=== PATIENT | female | born 1955 | race Caucasian/White ===

== ENCOUNTER → 2017-04-09 | Outpatient (REF) | payer OTHER ==
[2017-04-12 00:07] LABS: Lyme Disease IgG/IgM Antibodie <0.91 ISR (0.00-0.90); Lyme Disease IgM Ab Quantitati <0.80 index (0.00-0.79)
== END ==
LOC: M LAB REF 16:38
PROVIDERS: ATTEND Nurse Practitioner Family
DX: M79.1 Myalgia (principal)

== ENCOUNTER → 2017-04-16 | Outpatient (REF) | payer OTHER | LOC: M LAB REF 12:55 | PROVIDERS: ATTEND Nurse Practitioner Family | DX: M79.1 Myalgia (principal) ==

== ENCOUNTER → 2017-06-11 | Outpatient (CLI) | payer OTHER ==
[2017-06-11 11:07] LABS: FREE T4 1.47 NG/DL (0.76-1.46)
== END ==
LOC: M LAB 09:58
PROVIDERS: ATTEND Physician Assistant Medical
DX: E89.0 Postprocedural hypothyroidism (principal); C73 Malignant neoplasm of thyroid gland

== ENCOUNTER → 2017-07-20 | Outpatient (CLI) | payer OTHER ==
[2017-07-20 18:49] LABS: ERYTHROCYTE SEDIMENTATION RATE 29 mm/hr (0-30)
== END ==
LOC: M WUC 11:08
DX: M17.0 Bilateral primary osteoarthritis of knee (principal)
CPT/HCPCS: 86140

== ENCOUNTER → 2017-09-13 | Outpatient (REF) | payer OTHER | LOC: M LAB REF 17:22 | DX: K13.0 Diseases of lips (principal) ==

== ENCOUNTER → 2018-12-18 | Outpatient (REF) | payer OTHER | LOC: M LAB REF 12:22 | PROVIDERS: ATTEND Family Medicine | DX: E03.9 Hypothyroidism, unspecified (principal) ==

== ENCOUNTER → 2019-01-28 | Outpatient (REF) | payer OTHER ==
[2019-01-31 14:09] LABS: HPV HYBRID CAPTURE II Negative (Negative)
== END ==
LOC: M LAB LCGH 11:53
PROVIDERS: ATTEND Obstetrics & Gynecology
DX: Z01.419 Encounter for gynecological examination (general) (routine) without abnormal findings (principal); N89.8 Other specified noninflammatory disorders of vagina

== ENCOUNTER → 2020-01-05 | Outpatient (REF) | payer OTHER | LOC: M LAB REF 11:43 | PROVIDERS: ATTEND Family Medicine | DX: E03.9 Hypothyroidism, unspecified (principal) ==

== ENCOUNTER → 2020-06-03 | Outpatient (REF) | payer OTHER | LOC: M LAB REF 14:08 | PROVIDERS: ATTEND Dermatology | DX: L57.0 Actinic keratosis (principal) ==

== ENCOUNTER → 2020-08-26 | Outpatient (REF) | payer OTHER | LOC: M LAB REF 12:19 | PROVIDERS: ATTEND Family Medicine | DX: E03.9 Hypothyroidism, unspecified (principal) ==

== ENCOUNTER 2021-01-24 09:22 | Emergency (ER) | payer OTHER ==
[2021-01-24] MEDS ORDERED: SING4GRA PO (09:31)
[2021-01-24] MEDS ORDERED: PROV100T25 PO (09:31)
[2021-01-24] MEDS ORDERED: SYNT25TA PO (09:31)
[2021-01-24] MEDS ORDERED: MORPHINE 2 MG/ML 1ML VIAL (J2270) IV ONE ×3 (10:00→13:20)
[2021-01-24] MEDS ORDERED: ONDANSETRON 4MG/2ML VIAL IV ONE (10:00)
--- NOTE | 2021-01-24 10:01 | REP ---
INDICATION: TRAUMA COMPARISON: None. TECHNIQUE: AP, lateral, bilateral oblique views left wrist. FINDINGS: Comminuted transverse anteriorly displaced Marroquin's fracture of the distal radial metaphysis along with ulnar styloid fracture. The carpal bones themselves appear intact. IMPRESSION: Comminuted transverse anteriorly displaced fracture of the distal radial metaphysis with overriding fracture fragments and associated ulnar styloid fracture. <Electronically signed by Kendrick Medellin > 01/24/21 0957
[2021-01-24 10:22] LABS: BASO % 0.3 % (0.0-1.0); EOS # 0.1 10^3/uL (0.0-0.5); EOS % 0.9 % (0.0-3.0); HEMATOCRIT 41.9 % (36.0-47.0); HEMOGLOBIN 13.6 g/dl (12.0-15.5); LYMPH # 2.6 10^3/uL (1.5-5.0); LYMPH % 44.9 % (24.0-44.0); MEAN CORPUSCULAR HEMOGLOBIN 29.7 pg (27.0-33.0); MEAN CORPUSCULAR HGB CONC 32.5 g/dl (32.0-36.5); MEAN CORPUSCULAR VOLUME 91.5 fl (80.0-96.0); MONO # 0.4 10^3/uL (0.0-0.8); MONO % 6.6 % (2.0-8.0); NEUTROPHILS # 2.7 10^3/uL (1.5-8.5); PLATELET COUNT, AUTOMATED 306 10^3/uL (150-450); RED BLOOD COUNT 4.58 10^6/uL (4.00-5.40); WHITE BLOOD COUNT 5.7 10^3/uL (4.0-10.0)
[2021-01-24] MEDS ORDERED: METOCLOPRAMIDE INJ 10MG/2ML VIAL (J2765 PER 1) IV ONE (10:30)
[2021-01-24 10:40] LABS: BLOOD UREA NITROGEN 14 MG/DL (7-18); CALCIUM LEVEL 8.9 MG/DL (8.8-10.2); CARBON DIOXIDE LEVEL 32 MEQ/L (21-32); CHLORIDE LEVEL 103 MEQ/L (98-107); CREATININE FOR GFR 0.75 MG/DL (0.55-1.30); GLOMERULAR FILTRATION RATE > 60.0 (>45); GLUCOSE, FASTING 132 MG/DL (70-100); POTASSIUM SERUM 3.6 MEQ/L (3.5-5.1); SODIUM LEVEL 139 MEQ/L (136-145)
--- NOTE | 2021-01-24 10:41 | REP ---
INDICATION: fall COMPARISON: None. TECHNIQUE: Axial noncontrast images from the skull base to the thoracic inlet with coronal reformations. This CT examination was performed using the following dose reduction techniques: Automated exposure control, adjustment of mA and/or kv according to the patient's size, and use of iterative reconstruction technique. FINDINGS: Atrophy with periventricular leukomalacia and microvascular ischemic changes are appreciated. The ventricles and sulci are symmetric. Richardson-white differentiation is maintained. There is no evidence for acute intracranial hemorrhage, mass/mass effect, pathology or infarction. No extra-axial fluid collection. Calvarium is intact. Paranasal sinuses and mastoid air cells are clear. IMPRESSION: Atrophy and microvascular ischemic changes. No acute intracranial hemorrhage, infarction, or mass/mass effect. <Electronically signed by Kendrick Medellin > 01/24/21 [id number]
--- NOTE | 2021-01-24 10:43 | REP ---
INDICATION: fall COMPARISON: None. TECHNIQUE: Axial noncontrast images from the skull base to the thoracic inlet with coronal and sagittal re-formations This CT examination was performed using the following dose reduction techniques: Automated exposure control, adjustment of mA and/or kv according to the patient's size, and use of iterative reconstruction technique. FINDINGS: Advanced focal degenerative change at C5-6 with moderate age-related degenerative changes noted throughout the remainder of the cervical spine including exaggerated kyphosis. No acute fracture/compression injury or subluxation. Posterior elements and spinous processes are intact. Spinal canal is patent. Paravertebral soft tissues are within normal limits. IMPRESSION: Degenerative changes centered at C5-6. No evidence for acute pathology or trauma/injury. <Electronically signed by Kendrick Medellin > 01/24/21 103
--- NOTE | 2021-01-24 10:44 | REP ---
INDICATION: ttp s/p fall, obvious wrist deformity COMPARISON: None. TECHNIQUE: AP, lateral, single oblique views of the left elbow. FINDINGS: No acute fracture or dislocation is appreciated. Joint spaces and surrounding soft tissues appear normal. Lateral view demonstrates normal positioning to the anterior and posterior fat pads without evidence for effusion/hemarthrosis. No subcutaneous emphysema or foreign body identified. IMPRESSION: No acute fracture or dislocation appreciated <Electronically signed by Kendrick Medellin > 01/24/21 [id number]
--- NOTE | 2021-01-24 10:45 | REP ---
INDICATION: ttp s/p fall, obvious wrist deformity COMPARISON: None. TECHNIQUE: Three views of the left shoulder FINDINGS: Examination is limited by positioning and overlying opacities. The oblique/internal rotation view demonstrates no obvious acute fracture or dislocation. IMPRESSION: Limited examination. No obvious acute fracture or dislocation. <Electronically signed by Kendrick Medellin > 01/24/21 1045
[2021-01-24 11:36] LABS: RSV AMPLIFICATION NEGATIVE (NEGATIVE)
[2021-01-24 13:27] VITALS: BP 140/72
== END 2021-01-24 13:29 | disposition short-term general hospital (02) ==
LOC: M ED 09:22
DX: S52.612A Displaced fracture of left ulna styloid process, initial encounter for closed fracture (principal); S52.542A Smith's fracture of left radius, initial encounter for closed fracture; S09.90XA Unspecified injury of head, initial encounter; S60.812A Abrasion of left wrist, initial encounter; M50.30 Other cervical disc degeneration, unspecified cervical region; W01.10XA Fall on same level from slipping, tripping and stumbling with subsequent striking against unspecified object, initial encounter; Y92.830 Public park as the place of occurrence of the external cause; Y93.73 Activity, racquet and hand sports; Y99.9 Unspecified external cause status; Z88.5 Allergy status to narcotic agent
CPT/HCPCS: 70450; 72125; 73030; 73080; 73110; 80048; 85025; 87631; 96374; 96375; 96376; 99284; J2270; J2405; J2765

== ENCOUNTER → 2021-02-28 | Outpatient (REF) | payer OTHER ==
[~2021-02-28] MED LIST: PROV100T25 PO; SING4GRA PO; SYNT25TA PO
== END ==
LOC: M LAB REF 12:25
PROVIDERS: ATTEND Family Medicine
DX: E03.9 Hypothyroidism, unspecified (principal)

== ENCOUNTER → 2021-07-21 | Outpatient (REF) | payer OTHER | LOC: M LAB REF 16:23 | PROVIDERS: ATTEND Podiatrist Foot & Ankle Surgery | DX: D48.5 Neoplasm of uncertain behavior of skin (principal) ==

== ENCOUNTER → 2021-07-25 | Outpatient (REF) | payer OTHER | LOC: M LAB REF 14:14 | PROVIDERS: ATTEND Nurse Practitioner Family | DX: D22.5 Melanocytic nevi of trunk (principal) ==

== ENCOUNTER → 2021-11-30 | Outpatient (REF) | payer OTHER | LOC: M LAB REF 12:33 | PROVIDERS: ATTEND Family Medicine | DX: E03.9 Hypothyroidism, unspecified (principal) ==

== ENCOUNTER → 2022-06-20 | Outpatient (CLI) | payer OTHER ==
[~2022-06-20] MED LIST changes: +MONT4GRA10 PO; -SING4GRA PO
== END ==
LOC: M RAD 07:15
PROVIDERS: ATTEND Family Medicine
DX: I10 Essential (primary) hypertension (principal)

== ENCOUNTER → 2022-11-30 | Outpatient (REF) | payer OTHER, MEDICARE | LOC: M LAB REF 12:28 | PROVIDERS: ATTEND Family Medicine | DX: E03.9 Hypothyroidism, unspecified (principal) ==

== ENCOUNTER → 2023-10-01 | Outpatient (REF) | payer MEDICARE, OTHER ==
[2023-10-09 15:08] LABS: THRYOGLOBULIN ANTIBODIES (ATA) 12.8 IU/mL (0.0-0.9); THYROGLOBULIN RIA < 2.0 ng/mL (.)
== END ==
LOC: M LAB REF 12:06
PROVIDERS: ATTEND Family Medicine
DX: E89.0 Postprocedural hypothyroidism (principal); Z85.850 Personal history of malignant neoplasm of thyroid

== ENCOUNTER → 2023-11-07 | Outpatient (CLI) | payer MEDICARE, OTHER | LOC: M WUC 11:11 | PROVIDERS: ATTEND Nurse Practitioner Family | DX: S42.402A Unspecified fracture of lower end of left humerus, initial encounter for closed fracture (principal); W18.30XA Fall on same level, unspecified, initial encounter; Y92.009 Unspecified place in unspecified non-institutional (private) residence as the place of occurrence of the external cause ==

== ENCOUNTER → 2024-01-31 | Outpatient (REF) | payer MEDICARE, OTHER | LOC: M LAB REF 13:03 | PROVIDERS: ATTEND Family Medicine | DX: G47.11 Idiopathic hypersomnia with long sleep time (principal) ==

== ENCOUNTER 2025-07-01 09:44 | Emergency (ER) | payer MEDICARE, OTHER ==
[~2025-07-01] VITALS: Ht 170.2 cm; Wt 77.7 kg
[~2025-07-01 09:44] MED LIST changes: -AMLO1TAB24; -ATEN25TA; -ATOR1TAB19; -CELE1CAP4 PO; -LEVO150T7; -LOSA100T46; -OXYC-517 PO; -OXYC1TAB23 PO; -SPIR-10
[2025-07-01] MEDS: ACETAMINOPHEN 500 MG TAB PO ONE (10:20)
[2025-07-01] MEDS: ONDANSETRON 4MG ORAL DISINTEGRATING TAB PO ONE (10:35)
[2025-07-01 11:40] VITALS: BP 143/64; TEMP 97.8; O2SAT 97
[2025-07-01] MEDS ORDERED: OXYC-517 PO (11:59)
[2025-07-01] MEDS ORDERED: CELE1CAP4 PO (11:59)
[2025-07-02] MEDS ORDERED: ATOR1TAB19 (13:54)
[2025-07-02] MEDS ORDERED: LOSA100T46 (13:54)
[2025-07-02] MEDS ORDERED: SPIR-10 (13:54)
[2025-07-02] MEDS ORDERED: AMLO1TAB24 (13:54)
[2025-07-02] MEDS ORDERED: ATEN25TA (13:54)
[2025-07-02] MEDS ORDERED: LEVO150T7 (13:54)
== END 2025-07-01 12:14 | disposition home or self-care (01) ==
LOC: M ED 09:44
DX: S52.571A Other intraarticular fracture of lower end of right radius, initial encounter for closed fracture (principal); Y92.019 Unspecified place in single-family (private) house as the place of occurrence of the external cause; Y93.9 Activity, unspecified; Y99.9 Unspecified external cause status; W00.0XXA Fall on same level due to ice and snow, initial encounter; E03.9 Hypothyroidism, unspecified; Z79.899 Other long term (current) drug therapy

== ENCOUNTER → 2025-07-01 | Outpatient (CLI) | payer MEDICARE, OTHER ==
[~2025-07-01] MED LIST changes: +AMLO1TAB24; +ATEN25TA; +ATOR1TAB19; +CELE1CAP4 PO; +LEVO150T7; +LOSA100T46; +OXYC-517 PO; +OXYC1TAB23 PO; +SPIR-10
== END ==
LOC: M SOG 13:48
PROVIDERS: ATTEND Orthopaedic Surgery Hand Surgery
DX: M25.531 Pain in right wrist (principal)

== ENCOUNTER 2025-07-03 06:18 | Day surgery (SDC) | payer MEDICARE, OTHER ==
[~2025-07-03] VITALS: Ht 170.2 cm; Wt 79.9 kg
[~2025-07-03 06:18] MED LIST changes: +AMLO1TAB24; +ATEN25TA; +ATOR1TAB19; +CELE1CAP4 PO; +LEVO150T7; +LOSA100T46; +OXYC-517 PO; +SPIR-10
[2025-07-03] MEDS ORDERED: dexAMETHasone 4 MG/ML 1 ML VIAL As Ordered ONE (07:10)
[2025-07-03] MEDS ORDERED: LIDOCAINE 2% 100 MG/5 ML SDV (FOR ANES.) As Ordered ONE (07:10)
[2025-07-03] MEDS: LR 1,000 ML IV SCH (07:20)
[2025-07-03] MEDS: MIDAZOLAM INJ 2 MG/2 ML VIAL IV PRN (07:28)
[2025-07-03] MEDS: LIDOCAINE 1% SDV 5 ML VIAL PN STA (07:30)
[2025-07-03] MEDS: ROPIvacaine 0.5% 30ML VIAL PN ONE (07:30)
[2025-07-03] MEDS: dexAMETHasone 10 MG/1 ML VIAL PRES.FREE PN ONE (07:30)
[2025-07-03] MEDS: SCOPOLAMINE 1MG TRANSDERMAL PATCH TOP ONE (07:34)
[2025-07-03] MEDS: ceFAZolin SODIUM 2 GM in DEXTROSE 5% (D5W) ADV/MINI-BAG 50 ML IV ONE (07:55)
[2025-07-03] MEDS ORDERED: ACETAMINOPHEN 1000MG/100ML IV BAG As Ordered ONE (07:57)
[2025-07-03] MEDS ORDERED: KETOROLAC 30 MG/ML 1 ML VIAL As Ordered ONE (08:14)
[2025-07-03] MEDS ORDERED: ONDANSETRON 4MG/2ML VIAL As Ordered ONE (08:14)
[2025-07-03] MEDS ORDERED: ONDANSETRON 4MG/2ML VIAL IV PRN (09:20)
[2025-07-03] MEDS ORDERED: OXYC1TAB23 PO (09:34)
[2025-07-03 10:40] VITALS: BP 145/96; TEMP 98.3; O2SAT 99
== END 2025-07-03 10:52 | disposition home or self-care (01) ==
LOC: M SDC 06:18
PROVIDERS: ATTEND Orthopaedic Surgery Hand Surgery
DX: S52.551A Other extraarticular fracture of lower end of right radius, initial encounter for closed fracture (principal); I10 Essential (primary) hypertension; E89.0 Postprocedural hypothyroidism; W19.XXXA Unspecified fall, initial encounter; G47.11 Idiopathic hypersomnia with long sleep time; Y93.9 Activity, unspecified; Y92.9 Unspecified place or not applicable; Z79.890 Hormone replacement therapy; Z79.899 Other long term (current) drug therapy; Z85.850 Personal history of malignant neoplasm of thyroid; Z92.3 Personal history of irradiation; Z87.891 Personal history of nicotine dependence
CPT/HCPCS: 25607; 76000; 93005; C1713; J0131; J0688; J1100; J1885; J2250; J2405; J2765; J2795; J3010

== ENCOUNTER → 2025-07-09 | Outpatient (CLI) | payer MEDICARE, OTHER ==
[~2025-07-09] MED LIST changes: +OXYC1TAB23 PO
== END ==
LOC: M SOG 08:01
PROVIDERS: ATTEND Physician Assistant
DX: S52.501A Unspecified fracture of the lower end of right radius, initial encounter for closed fracture (principal); Y93.9 Activity, unspecified; Y92.9 Unspecified place or not applicable